=== PATIENT | female | born 1985 | race African-American/Black ===

== ENCOUNTER 2016-11-29 00:31 | Emergency (ER) | payer SELFPAY ==
[~2016-11-29] VITALS: Ht 172.7 cm; Wt 80.0 kg
[2016-11-29] MEDS ORDERED: KETOROLAC 30MG/ML VIAL IV ONE (02:30)
[2016-11-29 02:32] LABS: CLARITY URINE CLEAR (CLEAR); COLOR URINE YELLOW (YELLOW); GLUCOSE URINE NEGATIVE (NEGATIVE); KETONES URINE NEGATIVE (NEGATIVE); LEUKOCYTE ESTERASE URINE NEGATIVE (NEGATIVE); NITRITE URINE NEGATIVE (NEGATIVE); OCCULT BLOOD URINE NEGATIVE (NEGATIVE); PH URINE 7.5 (4.5-8.0); PROTEIN URINE NEGATIVE (NEGATIVE); SPECIFIC GRAVITY URINE 1.009 (1.005-1.030); UROBILINOGEN URINE 0.2 E.U./dL (0.2-1.0)
[2016-11-29 03:07] LABS: *AMPHETAMINES SCREEN URINE NEGATIVE (NEGATIVE); *BARBITURATES SCREEN URINE NEGATIVE (NEGATIVE); *BENZODIAZEPINES SCREEN URINE NEGATIVE (NEGATIVE); CANNABINOID URINE SCREEN NEGATIVE (NEGATIVE); METHADONE URINE SCREEN NEGATIVE (NEGATIVE); OPIATES URINE SCREEN NEGATIVE (NEGATIVE)
[2016-11-29 03:44] LABS: BASOPHILS % 0.9 % (0.0-2.0); EOSINOPHILS % 1.5 % (0.0-5.0); HEMATOCRIT. 39.7 % (36.0-48.0); HEMOGLOBIN. 13.1 g/dL (12.0-16.0); LYMPHOCYTES % 33.1 % (20.0-50.0); MEAN CORPUSCULAR HEMOGLOBIN 28.1 pg (28.0-32.0); MEAN CORPUSCULAR VOLUME 84.9 fL (81.0-99.0); MEAN PLATELET VOLUME 9.1 fl (7.4-10.4); MONOCYTES % 8.6 % (2.0-8.0); NEUTROPHILS % 55.9 % (40.0-76.0); PLATELET 291 x1000/uL (130-400); RED BLOOD CELL COUNT 4.67 mill/uL (4.2-5.4); RED CELL DISTRIBUTION WIDTH 13.6 % (11.6-14.6)
[2016-11-29 03:46] LABS: PROTHROMBIN TIME 10.7 sec
[2016-11-29 03:54] LABS: CARBON DIOXIDE 27 mEq/L (21-32); CHLORIDE 106 mEq/L (98-107)
[2016-11-29] MEDS ORDERED: HYDROCODONE/ACETAMINOPHEN 5/325MG TABLET PO ONE (04:30)
[2016-11-29 04:32] LABS: PHENYTOIN < 0.4 ug/mL (10-20)
[2016-11-29 04:32] LABS: *COCAINE SCREEN URINE PRESUMTIVE POSITIVE (NEGATIVE); PHENCYCLIDINE URINE SCREEN PRESUMTIVE POSITIVE (NEGATIVE)
[2016-11-29] MEDS ORDERED: PHENYTOIN SODIUM EXTENDED 100MG CAPSULE PO ONE (04:45)
[2016-11-29] MEDS ORDERED: PHENYTOIN SODIUM 500 MG in SODIUM CHLORIDE 0.9% 50 ML IV ONE (04:45)
[2016-11-29 05:45] VITALS: BP 162/93
== END 2016-11-29 06:35 | disposition home or self-care (01) ==
LOC: ER 00:37
DX: G40.909 Epilepsy, unspecified, not intractable, without status epilepticus (principal); T40.5X1A Poisoning by cocaine, accidental (unintentional), initial encounter; T40.991A Poisoning by other psychodysleptics [hallucinogens], accidental (unintentional), initial encounter; R78.89 Finding of other specified substances, not normally found in blood; R51 Headache; Y92.89 Other specified places as the place of occurrence of the external cause; Z88.0 Allergy status to penicillin
CPT/HCPCS: 36415; 70450; 80053; 80185; 80305; 81003; 81025; 85025; 85610; 96365; 96375; 99285; J1165; J1885; J7050; Z7610

== ENCOUNTER 2017-10-06 19:15 | Emergency (ER) | payer OTHER ==
[~2017-10-06] VITALS: Ht 162.6 cm; Wt 80.0 kg
[2017-10-06 19:17] VITALS: BP 158/105
[2017-10-06] MEDS ORDERED: SODIUM CHLORIDE 0.9% 1,000 ML IV ONE (19:22)
== END 2017-10-06 19:45 | disposition left against medical advice (07) ==
LOC: ER 19:15
DX: G40.909 Epilepsy, unspecified, not intractable, without status epilepticus (principal); Z88.0 Allergy status to penicillin
CPT/HCPCS: 99283; J7030

== ENCOUNTER 2018-01-20 12:22 | Emergency (ER) | payer OTHER ==
[~2018-01-20] VITALS: Ht 170.2 cm; Wt 90.0 kg
[2018-01-20] MEDS ORDERED: PHEN-434 PO (12:25)
[2018-01-20 14:46] LABS: CLARITY URINE CLOUDY (CLEAR); COLOR URINE YELLOW (YELLOW); KETONES URINE 1+ (NEGATIVE); LEUKOCYTE ESTERASE URINE NEGATIVE (NEGATIVE); NITRITE URINE NEGATIVE (NEGATIVE); OCCULT BLOOD URINE NEGATIVE (NEGATIVE); PROTEIN URINE NEGATIVE (NEGATIVE); SPECIFIC GRAVITY URINE 1.013 (1.005-1.030); UROBILINOGEN URINE 0.2 E.U./dL (0.2-1.0)
[2018-01-20 14:51] LABS: BASOPHILS % 1.3 % (0.0-2.0); EOSINOPHILS % 0.6 % (0.0-5.0); HEMOGLOBIN. 12.9 g/dL (12.0-16.0); MEAN CORPUSCULAR HEMOGLOBIN 27.4 pg (28.0-32.0); MEAN CORPUSCULAR VOLUME 83.2 fL (81.0-99.0); MEAN PLATELET VOLUME 10.4 fl (7.4-10.4); MONOCYTES % 9.4 % (2.0-8.0); NEUTROPHILS % 62.7 % (40.0-76.0); PLATELET 287 x1000/uL (130-400); RED BLOOD CELL COUNT 4.69 mill/uL (4.2-5.4); RED CELL DISTRIBUTION WIDTH 14.4 % (11.6-14.6)
[2018-01-20 14:59] LABS: CHLORIDE 105 mEq/L (98-107)
[2018-01-20] MEDS ORDERED: KETOROLAC 60MG/2ML VIAL IM ONE (15:00)
[2018-01-20 15:04] LABS: ETHANOL BLOOD < 10 mg/dL
[2018-01-20 15:10] LABS: *AMPHETAMINES SCREEN URINE NEGATIVE (NEGATIVE); *BARBITURATES SCREEN URINE NEGATIVE (NEGATIVE); *BENZODIAZEPINES SCREEN URINE NEGATIVE (NEGATIVE)
[2018-01-20 15:11] LABS: *COCAINE SCREEN URINE NEGATIVE (NEGATIVE); CANNABINOID URINE SCREEN NEGATIVE (NEGATIVE); OPIATES URINE SCREEN NEGATIVE (NEGATIVE)
[2018-01-20 15:12] LABS: METHADONE URINE SCREEN NEGATIVE (NEGATIVE)
[2018-01-20 15:15] LABS: PHENCYCLIDINE URINE SCREEN PRESUMTIVE POSITIVE (NEGATIVE)
[2018-01-20 15:23] LABS: VALPROIC ACID < 3.0 ug/mL (50-100)
[2018-01-20] MEDS ORDERED: PHENYTOIN SODIUM EXTENDED 100MG CAPSULE PO ONE (18:30)
[2018-01-20] MEDS ORDERED: ACETAMINOPHEN 325MG TABLET PO NR (19:45)
[2018-01-21 10:32] VITALS: BP 132/81
== END 2018-01-21 10:36 | disposition home or self-care (01) ==
LOC: ER 12:28
DX: G40.409 Other generalized epilepsy and epileptic syndromes, not intractable, without status epilepticus (principal); E86.0 Dehydration; F41.9 Anxiety disorder, unspecified; D72.829 Elevated white blood cell count, unspecified; R82.4 Acetonuria; F16.10 Hallucinogen abuse, uncomplicated; Z59.0 Homelessness; Z91.14 Patient's other noncompliance with medication regimen; Z88.0 Allergy status to penicillin
CPT/HCPCS: 36415; 70450; 80053; 80165; 80185; 80305; 81003; 81025; 82962; 83036; 85025; 93005; 96372; 99285; G0482; J1885

== ENCOUNTER 2019-01-30 16:53 | Emergency (ER) | payer MEDICAID, OTHER ==
[~2019-01-30] VITALS: Ht 162.6 cm; Wt 91.0 kg
[~2019-01-30 16:53] MED LIST: PHEN-434 PO
[2019-01-30 17:55] VITALS: BP 128/87
== END 2019-01-30 18:04 | disposition home or self-care (01) ==
LOC: ER 16:53
DX: H66.91 Otitis media, unspecified, right ear (principal); R09.81 Nasal congestion; I10 Essential (primary) hypertension; J45.909 Unspecified asthma, uncomplicated; F17.200 Nicotine dependence, unspecified, uncomplicated; Z88.0 Allergy status to penicillin; Z98.890 Other specified postprocedural states
CPT/HCPCS: 99283

== ENCOUNTER 2019-04-05 10:56 | Emergency (ER) | payer MEDICAID ==
[~2019-04-05] VITALS: Ht 162.6 cm; Wt 99.0 kg
[2019-04-05] MEDS ORDERED: SODIUM CHLORIDE 0.9% 1,000 ML IV ONE (11:34)
[2019-04-05] MEDS ORDERED: KETOROLAC 15MG/ML VIAL IV ONE (11:45)
[2019-04-05] MEDS ORDERED: METOCLOPRAMIDE HCL 10MG/2ML VIAL IV ONE (11:45)
[2019-04-05] MEDS ORDERED: DIPHENHYDRAMINE 50MG/ML VIAL IV ONE (11:45)
[2019-04-05] MEDS ORDERED: HYDRALAZINE 20MG/ML VIAL IV ONE (11:45)
[2019-04-05 12:09] LABS: BASOPHILS % 0.9 % (0.0-2.0); EOSINOPHILS % 0.4 % (0.0-5.0); HEMOGLOBIN. 13.9 g/dL (12.0-16.0); LYMPHOCYTES % 22.6 % (20.0-50.0); MEAN CORPUSCULAR HEMOGLOBIN 27.7 pg (28.0-32.0); MEAN CORPUSCULAR VOLUME 83.6 fL (81.0-99.0); MEAN PLATELET VOLUME 9.9 fl (7.4-10.4); NEUTROPHILS % 68.1 % (40.0-76.0); PLATELET 309 x1000/uL (130-400); RED BLOOD CELL COUNT 5.02 mill/uL (4.2-5.4); RED CELL DISTRIBUTION WIDTH 13.9 % (11.6-14.6)
[2019-04-05 12:16] LABS: CHLORIDE 103 mEq/L (98-107)
[2019-04-05 12:25] LABS: HCG SCREEN NEGATIVE
[2019-04-05] MEDS ORDERED: PHENYTOIN SODIUM EXTENDED 100MG CAPSULE PO ONE (13:45)
[2019-04-05 15:11] VITALS: BP 142/80
== END 2019-04-05 15:10 | disposition home or self-care (01) ==
LOC: ER 10:56
DX: I10 Essential (primary) hypertension (principal); R11.2 Nausea with vomiting, unspecified; J45.909 Unspecified asthma, uncomplicated; F17.200 Nicotine dependence, unspecified, uncomplicated; Z88.0 Allergy status to penicillin; Z86.69 Personal history of other diseases of the nervous system and sense organs; Z98.890 Other specified postprocedural states
CPT/HCPCS: 36415; 80053; 80185; 81025; 84703; 85025; 96361; 96374; 96375; 99283; J0360; J1200; J1885; J2765; J7030

== ENCOUNTER 2019-04-07 17:05 | Emergency (ER) | payer MEDICAID ==
[~2019-04-07] VITALS: Ht 165.1 cm; Wt 70.0 kg
[2019-04-07] MEDS ORDERED: SODIUM CHLORIDE 0.9% 1,000 ML IV ONE (18:51)
[2019-04-07 19:00] LABS: CLARITY URINE CLEAR (CLEAR); COLOR URINE YELLOW (YELLOW); KETONES URINE NEGATIVE (NEGATIVE); LEUKOCYTE ESTERASE URINE NEGATIVE (NEGATIVE); NITRITE URINE NEGATIVE (NEGATIVE); OCCULT BLOOD URINE NEGATIVE (NEGATIVE); PH URINE 6.5 (4.5-8.0); PROTEIN URINE NEGATIVE (NEGATIVE); SPECIFIC GRAVITY URINE 1.001 (1.005-1.030); UROBILINOGEN URINE 0.2 E.U./dL (0.2-1.0)
[2019-04-07] MEDS ORDERED: LEVETIRACETAM 1000MG/100ML 100 ML IV ONE (19:00)
[2019-04-07 19:11] LABS: *AMPHETAMINES SCREEN URINE NEGATIVE (NEGATIVE); *BARBITURATES SCREEN URINE NEGATIVE (NEGATIVE); *BENZODIAZEPINES SCREEN URINE NEGATIVE (NEGATIVE); *COCAINE SCREEN URINE NEGATIVE (NEGATIVE); METHADONE URINE SCREEN NEGATIVE (NEGATIVE); OPIATES URINE SCREEN NEGATIVE (NEGATIVE)
[2019-04-07 19:14] LABS: CANNABINOID URINE SCREEN NEGATIVE (NEGATIVE)
[2019-04-07 19:19] LABS: PHENCYCLIDINE URINE SCREEN PRESUMTIVE POSITIVE (NEGATIVE)
[2019-04-07 19:34] LABS: CHLORIDE 106 mEq/L (98-107)
[2019-04-07 19:38] LABS: ETHANOL BLOOD < 10 mg/dL
[2019-04-07] MEDS ORDERED: PHENYTOIN SODIUM 1,000 MG in SODIUM CHLORIDE 0.9% 100 ML IV ONE (20:00)
[2019-04-07] MEDS ORDERED: LORAZEPAM 2MG/ML CPJ ONE (20:43)
[2019-04-07] MEDS ORDERED: LORAZEPAM 2MG/ML CPJ IV ONE (20:45)
[2019-04-07 21:00] LABS: BASOPHILS % 0.4 % (0.0-2.0); EOSINOPHILS % 0.4 % (0.0-5.0); HEMATOCRIT. 38.8 % (36.0-48.0); HEMOGLOBIN. 12.8 g/dL (12.0-16.0); LYMPHOCYTES % 34.6 % (20.0-50.0); MEAN CORPUSCULAR VOLUME 85.1 fL (81.0-99.0); MEAN PLATELET VOLUME 9.6 fl (7.4-10.4); MONOCYTES % 8.8 % (2.0-8.0); NEUTROPHILS % 55.8 % (40.0-76.0); PLATELET 273 x1000/uL (130-400); RED BLOOD CELL COUNT 4.56 mill/uL (4.2-5.4)
[2019-04-08 07:05] VITALS: BP 124/74
[2019-04-08] MEDS ORDERED: ACETAMINOPHEN 325MG TABLET PO ONE (09:15)
== END 2019-04-08 09:53 | disposition home or self-care (01) ==
LOC: ER 17:05
DX: R56.9 Unspecified convulsions (principal); T40.995A Adverse effect of other psychodysleptics [hallucinogens], initial encounter; Y92.89 Other specified places as the place of occurrence of the external cause; I10 Essential (primary) hypertension; Z98.890 Other specified postprocedural states; Z88.0 Allergy status to penicillin
CPT/HCPCS: 36415; 80053; 80305; 80320; 81003; 81025; 85025; 96365; 96366; 96368; 96375; 99283; J1165; J1953; J2060; J7030; J7050; Z7610; G0480

== ENCOUNTER 2019-04-13 14:00 | Emergency (ER) | payer MEDICAID ==
[~2019-04-13] VITALS: Ht 165.1 cm; Wt 73.0 kg
[2019-04-13 14:03] VITALS: BP 145/84
== END 2019-04-13 14:38 | disposition left against medical advice (07) ==
LOC: ER 14:34
DX: Z53.21 Procedure and treatment not carried out due to patient leaving prior to being seen by health care provider (principal)

== ENCOUNTER 2020-02-01 04:11 | Emergency (ER) | payer MEDICAID ==
[~2020-02-01] VITALS: Ht 167.6 cm; Wt 91.0 kg
[2020-02-01] MEDS ORDERED: ONDANSETRON HCL 4MG/2ML INJ IV STA (05:03)
[2020-02-01] MEDS ORDERED: LEVETIRACETAM 500MG PREMIX 100 ML IV ONE (05:15)
[2020-02-01] MEDS ORDERED: SODIUM CHLORIDE 0.9% 1,000 ML IV ONE (05:15)
[2020-02-01 05:33] LABS: BASOPHILS % 0.8 % (0.0-2.0); EOSINOPHILS % 1.3 % (0.0-5.0); HEMOGLOBIN. 12.7 g/dL (12.0-16.0); LYMPHOCYTES % 26.3 % (20.0-50.0); MEAN CORPUSCULAR HEMOGLOBIN 29.3 pg (28.0-32.0); MEAN CORPUSCULAR VOLUME 87.4 fL (81.0-99.0); MEAN PLATELET VOLUME 9.3 fl (7.4-10.4); MONOCYTES % 10.2 % (2.0-8.0); NEUTROPHILS % 61.4 % (40.0-76.0); PLATELET 243 x1000/uL (130-400); RED BLOOD CELL COUNT 4.35 mill/uL (4.2-5.4)
[2020-02-01 05:42] LABS: CHLORIDE 110 mEq/L (98-107)
[2020-02-01 05:51] LABS: ETHANOL BLOOD < 10 mg/dL
[2020-02-01 08:51] VITALS: BP 130/80
== END 2020-02-01 08:53 | disposition home or self-care (01) ==
LOC: ER 04:32
DX: G40.909 Epilepsy, unspecified, not intractable, without status epilepticus (principal); I10 Essential (primary) hypertension; J45.909 Unspecified asthma, uncomplicated; F17.210 Nicotine dependence, cigarettes, uncomplicated; Z88.0 Allergy status to penicillin
CPT/HCPCS: 36415; 70450; 80053; 80320; 83605; 85025; 93005; 96365; 96375; 99285; J1953; J2405; J7030; G0480

== ENCOUNTER 2020-02-04 23:18 | Emergency (ER) | payer MEDICAID ==
[~2020-02-04] VITALS: Ht 172.7 cm; Wt 101.0 kg
[2020-02-04 23:20] VITALS: BP 144/97
== END 2020-02-05 00:29 | disposition left against medical advice (07) ==
LOC: ER 23:18
DX: R56.9 Unspecified convulsions (principal); Z53.21 Procedure and treatment not carried out due to patient leaving prior to being seen by health care provider
CPT/HCPCS: 93005

== ENCOUNTER 2020-02-15 15:17 | Emergency (ER) | payer MEDICAID, OTHER ==
[~2020-02-15] VITALS: Ht 162.6 cm; Wt 90.0 kg
[2020-02-15] MEDS ORDERED: LEVETIRACETAM 1000MG/100ML 100 ML IV ONE (15:30)
[2020-02-15] MEDS ORDERED: SODIUM CHLORIDE 0.9% 500 ML IV ONE (15:30)
[2020-02-15 16:04] LABS: BASOPHILS % 0.8 % (0.0-2.0); EOSINOPHILS % 0.3 % (0.0-5.0); HEMATOCRIT. 40.2 % (36.0-48.0); HEMOGLOBIN. 13.3 g/dL (12.0-16.0); LYMPHOCYTES % 18.7 % (20.0-50.0); MEAN CORPUSCULAR HEMOGLOBIN 28.9 pg (28.0-32.0); MEAN CORPUSCULAR VOLUME 87.2 fL (81.0-99.0); MEAN PLATELET VOLUME 9.9 fl (7.4-10.4); MONOCYTES % 9.5 % (2.0-8.0); NEUTROPHILS % 70.7 % (40.0-76.0); PLATELET 247 x1000/uL (130-400); RED BLOOD CELL COUNT 4.61 mill/uL (4.2-5.4)
[2020-02-15 16:14] LABS: CHLORIDE 110 mEq/L (98-107)
[2020-02-15 16:17] LABS: ETHANOL BLOOD < 10 mg/dL
[2020-02-15 17:21] VITALS: BP 127/81
== END 2020-02-15 17:26 | disposition home or self-care (01) ==
LOC: ER 15:17
DX: G40.909 Epilepsy, unspecified, not intractable, without status epilepticus (principal); I10 Essential (primary) hypertension; J45.909 Unspecified asthma, uncomplicated; F99 Mental disorder, not otherwise specified; F16.10 Hallucinogen abuse, uncomplicated; Z88.0 Allergy status to penicillin
CPT/HCPCS: 36415; 80053; 80185; 80320; 85025; 93005; 96365; 99284; J1953; J7040; G0480

== ENCOUNTER 2020-02-15 18:06 | Emergency (ER) | payer OTHER ==
[~2020-02-15] VITALS: Ht 172.7 cm; Wt 91.0 kg
[2020-02-15] MEDS ORDERED: PHENYTOIN SODIUM EXTENDED 100MG CAPSULE PO ONE ×2 (19:15)
[2020-02-15 19:50] VITALS: BP 160/90
== END 2020-02-15 21:08 | disposition home or self-care (01) ==
LOC: ER 18:06
DX: G40.909 Epilepsy, unspecified, not intractable, without status epilepticus (principal); I10 Essential (primary) hypertension; J45.909 Unspecified asthma, uncomplicated; F16.10 Hallucinogen abuse, uncomplicated; Z88.0 Allergy status to penicillin
CPT/HCPCS: 93005; 99283

== ENCOUNTER 2020-03-17 03:16 | Emergency (ER) | payer MEDICAID, OTHER ==
[~2020-03-17] VITALS: Ht 162.6 cm; Wt 113.0 kg
[2020-03-17 03:28] VITALS: BP 170/110
== END 2020-03-17 04:34 | disposition left against medical advice (07) ==
LOC: ER 03:16
DX: Z53.21 Procedure and treatment not carried out due to patient leaving prior to being seen by health care provider (principal)

== ENCOUNTER 2022-06-13 13:49 | Emergency (ER) | payer MEDICAID, OTHER ==
[~2022-06-13] VITALS: Ht 172.7 cm; Wt 86.0 kg
[2022-06-13 13:52] VITALS: BP 138/62
[2022-06-13] MEDS ORDERED: PHENYTOIN SODIUM EXTENDED 100MG CAPSULE PO ONE (14:15)
== END 2022-06-13 14:41 | disposition left against medical advice (07) ==
LOC: ER 14:20
DX: G40.909 Epilepsy, unspecified, not intractable, without status epilepticus (principal); I10 Essential (primary) hypertension; Z88.0 Allergy status to penicillin; Z98.890 Other specified postprocedural states
CPT/HCPCS: 99283

== ENCOUNTER 2022-09-14 21:49 | Emergency (ER) | payer OTHER ==
[~2022-09-14] VITALS: Ht 170.2 cm; Wt 74.0 kg
[2022-09-14] MEDS ORDERED: LEVETIRACETAM 500MG PREMIX 100 ML IV ONE (22:15)
[2022-09-15] VITALS: BP 156/88
== END 2022-09-15 00:30 | disposition left against medical advice (07) ==
LOC: ER 21:49
DX: R56.9 Unspecified convulsions (principal); I10 Essential (primary) hypertension; Z88.0 Allergy status to penicillin
CPT/HCPCS: 99283

== ENCOUNTER 2022-11-17 13:17 | Emergency (ER) | payer OTHER ==
[~2022-11-17] VITALS: Ht 162.6 cm; Wt 92.9 kg
[2022-11-17 14:02] VITALS: BP 142/95; PULSE 93; RESP 16; TEMP 98.9; O2SAT 100
[2022-11-17] MEDS ORDERED: FLUORESCEIN SODIUM 1MG/STRIP LEFTEYE STA (14:18)
[2022-11-17] MEDS ORDERED: ACET-2708 MT (21:34)
== END 2022-11-17 22:00 | disposition home or self-care (01) ==
LOC: ER 13:17
DX: R58 Hemorrhage, not elsewhere classified (principal); H53.8 Other visual disturbances; I10 Essential (primary) hypertension; Z98.890 Other specified postprocedural states
CPT/HCPCS: 70486; 99284

== ENCOUNTER 2022-11-19 22:11 | Emergency (ER) | payer OTHER ==
[~2022-11-19] VITALS: Ht 162.6 cm; Wt 94.0 kg
[~2022-11-19 22:11] MED LIST changes: +ACET-2708 MT
[2022-11-19 22:37] VITALS: O2SAT 96
[2022-11-19] MEDS ORDERED: IBUP-2028 MT (23:58)
[2022-11-20] MEDS ORDERED: KETOROLAC 60MG/2ML VIAL IM ONE
[2022-11-20 00:27] VITALS: BP 147/96
[2022-11-20 00:28] VITALS: PULSE 78; RESP 14; TEMP 98.3
== END 2022-11-20 00:29 | disposition home or self-care (01) ==
LOC: ER 22:11
DX: S05.12XA Contusion of eyeball and orbital tissues, left eye, initial encounter (principal); I10 Essential (primary) hypertension; Z88.0 Allergy status to penicillin; Z86.59 Personal history of other mental and behavioral disorders; Y04.0XXA Assault by unarmed brawl or fight, initial encounter; Y93.89 Activity, other specified; Y92.89 Other specified places as the place of occurrence of the external cause; Y99.8 Other external cause status
CPT/HCPCS: 81025; 99283; 96372; J1885; Z7610

== ENCOUNTER 2022-12-17 11:19 | Emergency (ER) | payer OTHER ==
[~2022-12-17] VITALS: Ht 167.6 cm; Wt 77.0 kg
[~2022-12-17 11:19] MED LIST changes: +IBUP-2028 MT
[2022-12-17 11:25] VITALS: TEMP 98.7; O2SAT 100
[2022-12-17] MEDS ORDERED: KETOROLAC 60MG/2ML VIAL IM STA (12:21)
[2022-12-17 12:23] LABS: BASOPHILS % 0.9 % (0.0-2.0); DIFFERENTIAL COMMENT 0; EOSINOPHILS % 0.8 % (0.0-5.0); HEMATOCRIT. 40.1 % (36.0-48.0); HEMOGLOBIN. 13.2 g/dL (12.0-16.0); LYMPHOCYTES % 19.1 % (20.0-50.0); MEAN CORPUSCULAR HEMOGLOBIN 28.3 pg (28.0-32.0); MEAN CORPUSCULAR VOLUME 85.8 fL (81.0-99.0); MONOCYTES % 9.5 % (2.0-8.0); NEUTROPHILS % 69.7 % (40.0-76.0); PLATELET 314 x1000/uL (130-400); RED BLOOD CELL COUNT 4.67 mill/uL (4.2-5.4); RED CELL DISTRIBUTION WIDTH 13.8 % (11.6-14.6); WHITE BLOOD COUNT 7.4 x1000/uL (4.5-11.0)
[2022-12-17 12:32] LABS: CLARITY URINE CLEAR (CLEAR); COLOR URINE YELLOW (YELLOW); GLUCOSE URINE NEGATIVE (NEGATIVE); KETONES URINE NEGATIVE (NEGATIVE); LEUKOCYTE ESTERASE URINE NEGATIVE (NEGATIVE); NITRITE URINE NEGATIVE (NEGATIVE); OCCULT BLOOD URINE NEGATIVE (NEGATIVE); PROTEIN URINE NEGATIVE (NEGATIVE); SPECIFIC GRAVITY URINE 1.003 (1.005-1.030); UROBILINOGEN URINE 0.2 E.U./dL (0.2-1.0)
[2022-12-17 12:36] VITALS: BP 146/105; PULSE 113; RESP 16
[2022-12-17 12:41] LABS: CHLORIDE 111 mEq/L (98-107); INDEX HEMOLYSI 1 (1-3); INDEX ICTERIC 1 (1-4); INDEX LIPEMIC 1 (1-3); SODIUM 139 mEq/L (136-145)
[2022-12-17 12:49] LABS: ALANINE AMINOTRANSFERASE 20 IU/L (13-61); ALBUMIN 3.9 g/dL (3.4-5.0); ASPARTATE AMINOTRANSFERASE 12 IU/L (15-37); BILIRUBIN TOTAL 0.3 mg/dL (0.1-1.0); CARBON DIOXIDE 27 mEq/L (21-32); CREATININE 0.8 mg/dL (0.6-1.3); GLUCOSE 104 mg/dL (70-105); PROTEIN TOTAL 7.6 g/dL (6.0-8.3); UREA NITROGEN BLOOD 7 mg/dL (7-21)
[2022-12-17 13:35] LABS: HCG SCREEN NEGATIVE
[2022-12-17] MEDS ORDERED: DICYCLOMINE HCL 20MG TABLET PO SCH (15:53)
[2022-12-17] MEDS ORDERED: DICY20TA2 MT (15:55)
[2022-12-17] MEDS ORDERED: ONDA4TAB11 PO (15:55)
== END 2022-12-17 16:30 | disposition home or self-care (01) ==
LOC: ER 11:19
DX: R10.84 Generalized abdominal pain (principal); I10 Essential (primary) hypertension; Z88.0 Allergy status to penicillin; Z98.890 Other specified postprocedural states; Z86.59 Personal history of other mental and behavioral disorders
CPT/HCPCS: 80053; 81003; 81025; 84703; 83690; 85025; 36415; 74176; 96372; 99285; J1885; Z7610 ×2